=== PATIENT | female | born 1965 | race Caucasian/White ===

== ENCOUNTER 2016-12-15 12:59 | Outpatient (CLI) | payer OTHER, MEDICAID | END 2016-12-15 13:00 | disposition critical access hospital (66) | LOC: EMS 12:59 | PROVIDERS: ATTEND Surgery | DX: R20.0 Anesthesia of skin (principal); V43.62XA Car passenger injured in collision with other type car in traffic accident, initial encounter; Y92.410 Unspecified street and highway as the place of occurrence of the external cause | CPT/HCPCS: A0425; A0429 ==

== ENCOUNTER 2016-12-15 13:46 | Emergency (ER) | payer OTHER, MEDICAID ==
[2016-12-15 13:56] VITALS: BP 94/57
--- NOTE | 2016-12-15 15:48 | XRAY Preliminary Report ---
Exam: XR Cervical Spine 2 View IMPRESSION: 1. No acute bony abnormality identified. 2. C2-C3 2 mm anterolisthesis. 3. Advanced degenerative disk disease at C5-C6 and C6-C7. [facility] SITE ID: [id number]
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
[2016-12-15] MEDS ORDERED: NAPROXEN 250 MG TABLET PO STA (16:03)
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
[2016-12-15] MEDS ORDERED: NAPROXEN 250 MG TABLET PO ONE (16:08)
== END 2016-12-15 16:12 | disposition home or self-care (01) ==
LOC: ED 13:46
DX: S16.1XXA Strain of muscle, fascia and tendon at neck level, initial encounter (principal); V43.62XA Car passenger injured in collision with other type car in traffic accident, initial encounter; Y92.488 Other paved roadways as the place of occurrence of the external cause
CPT/HCPCS: 72040; 99283; A9270